=== PATIENT | female | born 1955 | race Caucasian/White ===

== ENCOUNTER → 2019-03-18 | Outpatient (CLI) | payer MEDICARE | END | disposition home or self-care (01) | LOC: CFH 13:46 | PROVIDERS: ATTEND Internal Medicine Cardiovascular Disease | DX: I11.9 Hypertensive heart disease without heart failure (principal); Z85.850 Personal history of malignant neoplasm of thyroid | CPT/HCPCS: 93306 ==

== ENCOUNTER → 2019-10-20 | Outpatient (CLI) | payer MEDICARE | END | disposition home or self-care (01) | LOC: CFH 10:47 | PROVIDERS: ATTEND Physician Assistant | DX: N95.8 Other specified menopausal and perimenopausal disorders (principal) | CPT/HCPCS: 77080 ==

== ENCOUNTER 2020-03-12 14:55 | Outpatient (CLI) | payer MEDICARE | END 2020-03-12 23:59 | disposition home or self-care (01) | LOC: CFH 14:55 | PROVIDERS: ATTEND Internal Medicine Cardiovascular Disease | DX: I08.8 Other rheumatic multiple valve diseases (principal); I27.20 Pulmonary hypertension, unspecified | CPT/HCPCS: 93306 ==

== ENCOUNTER 2020-09-11 16:40 | Emergency (ER) | payer MEDICARE ==
[~2020-09-11] VITALS: Ht 165.1 cm; Wt 82.9 kg
[2020-09-11 17:54] LABS: BASOPHILS % (AUTO) 1 % (0-1); EOSINOPHILS % (AUTO) 4 % (1-7); LYMPHOCYTES % (AUTO) 20 % (22-44); MEAN CORPUSCULAR HEMOGLOBIN 31.6 pg (27.0-34.8); MEAN CORPUSCULAR HGB CONC 33.4 g/dL (32.4-35.8); MEAN PLATELET VOLUME 6.4 fL (7.4-10.4); MONOCYTES % (AUTO) 9 % (2-9); NEUTROPHILS % (AUTO) 65 % (42-75); PLATELET COUNT 316 x10^3/uL (130-400); RED BLOOD COUNT 3.42 x10^6/uL (3.82-5.3); RED CELL DISTRIBUTION WIDTH 12.8 % (9.6-15.2)
[2020-09-11 17:59] LABS: MD NO
[2020-09-11 18:07] LABS: ALANINE AMINOTRANSFERASE 25 U/L (12-78); ALBUMIN 3.2 g/dL (3.4-5.0); ANION GAP 6 mmol/L (5-15); CHLORIDE 104 mmol/L (98-107); CREATININE 1.27 mg/dL (0.55-1.02)
[2020-09-11 18:09] LABS: ALKALINE PHOSPHATASE 88 U/L (45-117); BILIRUBIN,TOTAL 0.5 mg/dL (0.2-1.0); TOTAL PROTEIN 6.8 g/dL (6.4-8.2)
[2020-09-11 19:47] VITALS: BP 159/93
--- NOTE | 2020-09-11 20:00 | NUR ---
C/O LEFT FOOT LE SWELLING, HAD LEFT HIP SURGERY 1 WEEK AGO. ERMD AT BEDSIDE FOR EVAL.
== END 2020-09-11 20:24 | disposition home or self-care (01) ==
LOC: ED 20:18
DX: R60.0 Localized edema (principal); I10 Essential (primary) hypertension; R94.31 Abnormal electrocardiogram [ECG] [EKG]
CPT/HCPCS: 36415; 80053; 85025; 93005; 99285

== ENCOUNTER → 2020-11-29 | Outpatient (CLI) | payer MEDICARE ==
[~2020-11-29] MED LIST: REGADENOSON 0.4 MG/5 ML SYRINGE ONE
== END | disposition home or self-care (01) ==
LOC: CFH 10:32
PROVIDERS: ATTEND Internal Medicine Cardiovascular Disease
DX: I08.8 Other rheumatic multiple valve diseases (principal); I11.9 Hypertensive heart disease without heart failure; R07.89 Other chest pain; R06.02 Shortness of breath
CPT/HCPCS: 78452; 93017; 93306; A9502; J2785